=== PATIENT | male | born 1985 | race Hispanic/Latino ===

== ENCOUNTER 2019-07-18 09:22 | Observation (INO) ==
[2019-07-18] MEDS ORDERED: LABETALOL 20 MG/4 ML (5 MG/1 ML) SYRINGE IVP ONE (09:40)
[2019-07-18] MEDS ORDERED: Belladon/PHENobarbital Elixir 10 ML, Lidocaine Viscous Liquid 2% 15 ML, Mag Hyd/Al Hyd/... PO ONE ×3 (09:40)
[2019-07-18] MEDS ORDERED: Sodium Chloride 0.9% 1,000 ML PRIMARY IV ONE (09:41)
[2019-07-18 09:53] LABS: BASOPHILS # (AUTO) 0.03 10*3/UL; BASOPHILS % (AUTO) 0.3 % (0-1); EOSINOPHILS # (AUTO) 0.08 10*3/UL; EOSINOPHILS % (AUTO) 0.8 % (0-8); Hematocrit [HCT] 47.1 % (42.0-52.0); Hemoglobin [HGB] 15.5 g/dL (14.0-18.0); LYMPHOCYTES # (AUTO) 1.35 10*3/uL; MEAN CORPUSCULAR HGB CONC 32.9 g/dL (33-37); MEAN CORPUSCULAR VOLUME 86.4 FL (80-90); MEAN PLATELET VOLUME 9.6 FL (7.4-12.2); MONOCYTES # (AUTO) 0.88 10*3/UL (0.3-0.8); MONOCYTES % (AUTO) 8.8 % (5-15); NEUTROPHILS % (AUTO) 75.7 % (50-80); RED BLOOD COUNT 5.45 10^6/uL (4.70-6.10)
[2019-07-18 10:02] LABS: BLOOD UREA NITROGEN 8 mg/dL (7-22); BUN/CREATININE RATIO 11.42 (6-20); PLATELET MORPHOLOGY COMMENT NORMAL MORPHOLOGY (NORM); RBC MORPHOLOGY COMMENT NORMAL MORPHOLOGY (NORM); SERUM ALBUMIN 4.4 g/dL (3.5-4.8); WBC MORPHOLOGY COMMENT NORMAL MORPHOLOGY (NORM)
[2019-07-18 11:18] LABS: BILIRUBIN,URINE NEGATIVE (NEG); CLARITY,URINE CLEAR (CLEAR); COLOR,URINE YELLOW (Y); GLUCOSE, URINE (UA) NEGATIVE (NEG); OCCULT BLOOD,URINE NEGATIVE (NEG); PH,URINE 6.5 (5.0-8.5); PROTEIN,URINE NEGATIVE (NEG); UROBILINOGEN,URINE 0.2 EU/dL (0.2)
[2019-07-18 11:23] LABS: URINE SAMPLE TYPE CLEAN CATCH URINE
[2019-07-18] MEDS ORDERED: ONDANSETRON 4 MG/2 ML VIAL IVP ONE (11:25)
[2019-07-18] MEDS ORDERED: HYDROmorphone 2 MG/1 ML IVP ONE (11:25)
[2019-07-18] MEDS ORDERED: ceFAZolin 1 GM VIAL IVP ONE (13:09)
[2019-07-18] MEDS ORDERED: ONDANSETRON 4 MG/2 ML VIAL IVP PRN ×2 (13:09→19:47)
[2019-07-18] MEDS ORDERED: MORPHINE SULFATE 2 MG/1 ML IVP PRN ×2 (13:09)
[2019-07-18] MEDS ORDERED: Lactated Ringers 1,000 ML PRIMARY IV ONE (13:09)
[2019-07-18] MEDS ORDERED: ceFAZolin Inj 2gm (Premix) 2 GM/50 ML BAG IV ONE (14:13)
[2019-07-18] MEDS ORDERED: HYDROmorphone 2 MG/1 ML IVP PRN ×2 (15:03→19:01)
[2019-07-18] MEDS ORDERED: BUPIVACAINE 0.25% W/ EPI - 10 ML VIAL ONE (16:07)
[2019-07-18] MEDS ORDERED: Sodium Chloride 0.9% vial 20 ML ONE (16:07)
[2019-07-18] MEDS ORDERED: PROPOFOL 10 MG/1 ML (200 MG/20 ML) VIAL IV ONE (16:19)
[2019-07-18] MEDS ORDERED: fentaNYL Inj 250 MCG/5 ML VIAL ONE (16:20)
[2019-07-18] MEDS ORDERED: MIDAZOLAM 5 MG/1 ML ONE (16:20)
[2019-07-18] MEDS ORDERED: LIDOCAINE MPF 2% - 5 ML (20 MG/1 ML) ONE (16:22)
[2019-07-18] MEDS ORDERED: ROCURONIUM 10 MG/1 ML - 5 ML VIAL IVP ONE (16:22)
[2019-07-18] MEDS ORDERED: KETAMINE 100 MG/1 ML - 5 ML ONE (16:35)
[2019-07-18] MEDS ORDERED: Iothalamate Meglumine 30 ML VIAL IV ONE (16:38)
[2019-07-18] MEDS ORDERED: Acetaminophen 1000mg Inj 1,000 MG/100 ML VIAL IV ONE (16:40)
[2019-07-18] MEDS ORDERED: DEXMEDETOMIDINE HCL 200 MCG/2 ML VIAL IV ONE (16:40)
[2019-07-18] MEDS ORDERED: ONDANSETRON 4 MG/2 ML VIAL ONE (16:49)
[2019-07-18] MEDS ORDERED: DEXAMETHASONE PF 10 MG/1 ML VIAL ONE (16:50)
[2019-07-18] MEDS ORDERED: ALBUTEROL SULFATE 8.5 GM HFA INHALER INH ONE (17:10)
[2019-07-18] MEDS ORDERED: ceFAZolin 1 GM VIAL ONE (17:17)
[2019-07-18] MEDS ORDERED: KETOROLAC 30 MG/1 ML VIAL ONE (18:08)
[2019-07-18] MEDS ORDERED: SUGAMMADEX SODIUM 200 MG/2 ML VIAL IV ONE (18:13)
[2019-07-18] MEDS ORDERED: LIDOCAINE W/ SODIUM BICARB 0.5 ML SYR SUBD PRN (19:01)
[2019-07-18] MEDS ORDERED: HYDROcodone-APAP 5 MG -325 MG TABLET PO PRN (19:47)
[2019-07-18] MEDS ORDERED: Lactated Ringers 1,000 ML PRIMARY IV SCH (20:00)
[2019-07-19 05:07] LABS: BLOOD UREA NITROGEN 9 mg/dL (7-22); BUN/CREATININE RATIO 11.25 (6-20)
[2019-07-19 06:59] VITALS: BP 108/66; RESP 16; TEMP 97.8; O2SAT 87
[2019-07-19 08:47] LABS: HEMOGLOBIN A1C 6.89 % (4.2-6.0)
== END 2019-07-19 11:24 | disposition home or self-care (01) ==
LOC: ER 09:22 → MED/SURG 09:22 → OPS 16:37 → MED/SURG 19:29
PROVIDERS: ADMIT Surgery; ATTEND Surgery